=== PATIENT | male | born 1985 | race Caucasian/White ===

== ENCOUNTER 2017-03-30 12:03 | Emergency (ER) | payer MEDICAID, OTHER ==
[~2017-03-30] VITALS: Ht 182.9 cm; Wt 87.5 kg
--- NOTE | 2017-03-30 12:20 | NUR ---
MSE COMPLETED, PT D/C'D HOME, ACI/RX X1 GIVEN. PT AMBULATED W/O DIFF/TOOK ALL BELONGINGS.
[2017-03-30 12:22] VITALS: BP 140/98
== END 2017-03-30 12:23 | disposition home or self-care (01) ==
LOC: ER 12:08
DX: B00.1 Herpesviral vesicular dermatitis (principal)
CPT/HCPCS: 99283; A4663